=== PATIENT | female | born 1995 | race African-American/Black ===

== ENCOUNTER 2020-04-21 16:18 | Emergency (ER) | payer MEDICAID ==
[~2020-04-21] VITALS: Ht 167.6 cm; Wt 59.0 kg
[2020-04-21 16:50] LABS: MEAN CORPUSCULAR HEMOGLOBIN 31.5 pg (27.0-34.8); MEAN CORPUSCULAR HGB CONC 32.1 g/dL (32.4-35.8); MEAN PLATELET VOLUME 8.3 fL (7.4-10.4); PLATELET COUNT 188 x10^3/uL (130-400); RED BLOOD COUNT 4.23 x10^6/uL (3.82-5.3)
[2020-04-21] MEDS ORDERED: SODIUM CHLORIDE 0.9% 1,000ML IVBOLUS ONE (17:00)
[2020-04-21] MEDS ORDERED: SODIUM CHLORIDE FLUSH 10ML SYR IVF ONE (17:00)
[2020-04-21] MEDS ORDERED: ONDANSETRON 2MG/ML, 2ML IVPush ONE (17:00)
--- NOTE | 2020-04-21 17:00 | NUR ---
PT BIB P/V FOR CONTINUED FEVERS DESPITE TAKING ANTIBIOTICS FOR UTI. PT REPORTS PAIN ON FLANKS NOT THAT BAD BUT CAN'T KEEP THE FEVERS DOWN. PT ON .
[2020-04-21 17:01] LABS: ALANINE AMINOTRANSFERASE 34 U/L (12-78); ALBUMIN 3.7 g/dL (3.4-5.0); ANION GAP 11 mmol/L (5-15); CALCIUM 8.4 mg/dL (8.5-10.1); CHLORIDE 100 mmol/L (98-107)
[2020-04-21] MEDS ORDERED: ONDANSETRON 2MG/ML, 2ML ONE (17:02)
[2020-04-21 17:06] LABS: ALKALINE PHOSPHATASE 46 U/L (45-117); BILIRUBIN,TOTAL 0.3 mg/dL (0.2-1.0)
--- NOTE | 2020-04-21 17:23 | NUR ---
BREAK RN: PT RESTING ON GURNEY W/ CALL LIGHT IN REACH AND FAMILY AT BEDSIDE. PT MEDICATED PER EMAR, CONNECTED TO MONITORING, VSS, NADN.
[2020-04-21 17:31] LABS: MD YES
[2020-04-21 17:36] LABS: MICROSCOPIC INDICATED
[2020-04-21 17:36] LABS: <PLATELET ESTIMATE> ADEQUATE; <PLT MORPHOLOGY> NORMAL PLT MORPH; <RBC MORPHOLOGY> NORMAL; BAND#(MANUAL) 1.19 x10^3/uL; BANDS%(MANUAL) 22 % (0-7); EOS#(MANUAL) 0.22 x10^3/uL (0.0-0.4); EOS% (MANUAL) 4 % (1-7); LYMPH#(MANUAL) 0.76 x10^3/uL (1-3.4); LYMPHS% (MANUAL) 14 % (22-44); MONOS#(MANUAL) 0.16 x10^3/uL (0.3-2.7); MONOS% (MANUAL) 3 % (2-9); PMNS WITH VACUOLES 2+; SEG#(MANUAL) 3.08 x10^3/uL (1.8-6.8); SEGS% (MANUAL) 57 % (42-75)
[2020-04-21] MEDS ORDERED: CEFTRIAXONE PMX 1GM/50ML 50 ML IVPB ONE (18:00)
[2020-04-21] MEDS ORDERED: CEFTRIAXONE PMX 1GM/50ML 50 ML ONE ×2 (18:28→18:45)
[2020-04-21 18:35] VITALS: BP 105/64
--- NOTE | 2020-04-21 18:36 | NUR ---
ANTIBIOTICS STARED ER MD ORDER. NO BLOOD CULTURES NEEDED PER DR. GARRETT.
== END 2020-04-21 19:14 | disposition home or self-care (01) ==
LOC: ED 16:45
DX: N30.00 Acute cystitis without hematuria (principal); R11.2 Nausea with vomiting, unspecified
CPT/HCPCS: 36415; 80053; 81001; 84702; 85025; 87086; 96361; 96365; 96375; 99284; J0696; J2405; J7030

== ENCOUNTER 2020-11-03 18:12 | Inpatient (IN) | payer MEDICAID ==
[~2020-11-03] VITALS: Ht 167.6 cm; Wt 62.9 kg
[2020-11-03] MEDS ORDERED: ONDANSETRON 2MG/ML, 2ML ONE (18:53)
[2020-11-03] MEDS ORDERED: MORPHINE SULFATE 4 MG/ML, 1ML ONE ×2 (18:54→21:05)
[2020-11-03] MEDS ORDERED: ACETAMINOPHEN 500 MG TABLET ONE (18:54)
[2020-11-03 19:00] LABS: MEAN CORPUSCULAR HEMOGLOBIN 33.6 pg (27.0-34.8); MEAN CORPUSCULAR HGB CONC 33.3 g/dL (32.4-35.8); PLATELET COUNT 208 x10^3/uL (130-400); RED BLOOD COUNT 3.75 x10^6/uL (3.82-5.3)
[2020-11-03] MEDS ORDERED: SODIUM CHLORIDE 0.9% 1,000ML IVBOLUS ONE ×2 (19:00→19:30)
[2020-11-03] MEDS: MORPHINE SULFATE 4 MG/ML, 1ML IVPush PRN ×2 (19:00→21:13)
[2020-11-03] MEDS ORDERED: ACETAMINOPHEN 500 MG TABLET PO ONE (19:00)
[2020-11-03] MEDS ORDERED: SODIUM CHLORIDE FLUSH 10ML SYR IVF ONE (19:00)
[2020-11-03] MEDS ORDERED: ONDANSETRON 2MG/ML, 2ML IVPush ONE (19:00)
[2020-11-03 19:05] LABS: MICROSCOPIC INDICATED
[2020-11-03 19:11] LABS: ANION GAP 12 mmol/L (5-15); CALCIUM 8.7 mg/dL (8.5-10.1); CHLORIDE 103 mmol/L (98-107); CREATININE 1.19 mg/dL (0.55-1.02)
--- NOTE | 2020-11-03 19:11 | NUR ---
1ST ATTEMPT PIV PLACEMENT UNSUCCESSFULL, BUT LABS AND 1 SET BLOOD CX DRAWN. PIV PLACED, ON SECOND ATTEMPT, REST OF LABS AND SECOND SET BLOOD CX DRAWN. ALL LABS AND URINE COLLECTED BY SUPERVISOR DISPLAY FABRICATION. IVF RUNNING. MEDS ADMIN PER NOV. PT CONNECTED TO MONITORING. CALL LIGHT IN REACH. EKG COMPLETE.
[2020-11-03 19:12] LABS: ALANINE AMINOTRANSFERASE 20 U/L (12-78); ALBUMIN 3.8 g/dL (3.4-5.0)
[2020-11-03 19:16] LABS: ALKALINE PHOSPHATASE 75 U/L (45-117); BILIRUBIN,TOTAL 1.1 mg/dL (0.2-1.0); TOTAL PROTEIN 8.2 g/dL (6.4-8.2)
[2020-11-03 19:17] LABS: MD YES
[2020-11-03 19:20] LABS: BAND#(MANUAL) 2.37 x10^3/uL; BANDS%(MANUAL) 14 % (0-7); LYMPH#(MANUAL) 1.35 x10^3/uL (1-3.4); LYMPHS% (MANUAL) 8 % (22-44); MONOS#(MANUAL) 0.34 x10^3/uL (0.3-2.7); MONOS% (MANUAL) 2 % (2-9); SEG#(MANUAL) 12.84 x10^3/uL (1.8-6.8); SEGS% (MANUAL) 76 % (42-75)
[2020-11-03 19:23] LABS: MICROCYTOSIS 1+; OVALOCYTES 1+
[2020-11-03 19:24] LABS: <PLATELET ESTIMATE> ADEQUATE; <PLT MORPHOLOGY> NORMAL PLT MORPH; PMNS WITH VACUOLES 1+
[2020-11-03] MEDS ORDERED: CEFTRIAXONE PMX 2GM/50ML 50 ML IVPB ONE (19:30)
[2020-11-03] MEDS ORDERED: LACTATED RINGERS 1,000 ML IVBOLUS ONE (20:00)
[2020-11-03] MEDS ORDERED: METRONIDAZOLE PMX 500MG/100ML 100 ML IV ONE (20:00)
[2020-11-03] MEDS ORDERED: OMNIPAQUE 350 MG/ML, 100ML BOTTLE ONE (20:00)
[2020-11-03] MEDS ORDERED: METRONIDAZOLE PMX 500MG/100ML 100 ML ONE (20:17)
[2020-11-03] MEDS ORDERED: CEFTRIAXONE PMX 2GM/50ML 50 ML ONE (20:17)
--- NOTE | 2020-11-03 20:22 | NUR ---
PT BACK FROM US. IV ABX STARTED PER NOV. 2 SETS BLOOD CX COLLECTED PRIOR TO ADMIN.
--- NOTE | 2020-11-03 20:23 | NUR ---
PT STATES PAIN IS BETTER.
--- NOTE | 2020-11-03 20:42 | NUR ---
PT AT CT
--- NOTE | 2020-11-03 21:12 | NUR ---
THIS RN AT BEDSIDE DURING PELVIC EXAM. PAIN MEDS ADMIN.
--- NOTE | 2020-11-03 21:15 | NUR ---
MD AT BEDSIDE TO UPDATE PT ON POC.
--- NOTE | 2020-11-03 21:22 | NUR ---
CONSULTING WITH UROLOGY
[2020-11-03 21:23] LABS: CLUE CELLS NONE SEEN (NONE SEEN)
[2020-11-03 21:24] LABS: WET PREP WBCS MODERATE (FEW)
--- NOTE | 2020-11-03 22:00 | NUR ---
HOSPITALIST AT BEDSIDE.
--- NOTE | 2020-11-03 22:47 | NUR ---
REPORT GIVEN TO JACKELYN AUSTIN IN SURGERY.
[2020-11-03] MEDS ORDERED: LACTATED RINGERS 1,000 ML IV SCH (23:00)
[2020-11-03] MEDS ORDERED: MELATONIN 5 MG TABLET PO PRN (23:00)
[2020-11-03] MEDS ORDERED: BISACODYL 10 MG SUPP PR PRN (23:00)
[2020-11-03] MEDS ORDERED: LIDODERM 5% PATCH TD PRN (23:00)
[2020-11-04] MEDS ORDERED: FENTANYL PF 100 MCG/2ML ONE ×3 (00:08→01:16)
[2020-11-04] MEDS ORDERED: ONDANSETRON 2MG/ML, 2ML ONE (00:49)
[2020-11-04] MEDS ORDERED: CEFAZOLIN 1,000 MG ONE (00:49)
[2020-11-04] MEDS ORDERED: PROPOFOL 10 MG/ML, 20ML ONE (00:49)
[2020-11-04] MEDS ORDERED: DEXAMETHASONE 4 MG/ML, 1ML ONE (00:49)
[2020-11-04] MEDS ORDERED: MEPERIDINE/PF 25MG/0.5ML IVPush PRN (01:00)
[2020-11-04] MEDS ORDERED: OXYcodone 5 MG/5 ML ORAL.SOL UDC PO PRN (01:00)
[2020-11-04] MEDS ORDERED: VANCOMYCIN PER PHARMACY MC PRN (01:00)
[2020-11-04] MEDS ORDERED: HALOPERIDOL 5 MG/ML IV PRN (01:00)
[2020-11-04] MEDS ORDERED: DIPHENHYDRAMINE 50 MG/ML, 1ML IVPush PRN (01:00)
[2020-11-04] MEDS ORDERED: PHARMACY MAY ADJ FOR RENAL FX MC PRN (01:00)
[2020-11-04] MEDS ORDERED: hydrALAzine 20 MG/ML, 1ML IV PRN (01:00)
[2020-11-04] MEDS ORDERED: LABETALOL 5MG/ML, 20ML IV PRN (01:00)
[2020-11-04] MEDS ORDERED: HYDROmorphone 1 MG/ML, 1ML INJ IVPush PRN (01:00)
[2020-11-04] MEDS ORDERED: PROMETHAZINE 25 MG/ML, 1ML IVPush PRN (01:00)
[2020-11-04] MEDS ORDERED: FENTANYL PF 100 MCG/2ML IV PRN (01:00)
[2020-11-04] MEDS: ACETAMINOPHEN 325 MG TABLET PO PRN ×2 (01:10→21:55)
[2020-11-04] MEDS ORDERED: ACETAMINOPHEN 650 MG/20.3 ML UDC ONE (01:16)
[2020-11-04] MEDS ORDERED: OXYcodone 5 MG/5 ML ORAL.SOL UDC ONE (01:16)
[2020-11-04 01:59] VITALS: BP 106/66
[2020-11-04] MEDS ORDERED: PHARMACOKINETIC MONITORING MC PRN (02:00)
[2020-11-04] MEDS: SODIUM CHLORIDE 0.9% 1,000 ML IV SCH ×2 (02:30→15:27)
[2020-11-04] MEDS: VANCOMYCIN PMX 1GM/200ML 200 ML IV SCH ×2 (02:32→15:16)
[2020-11-04 02:38] VITALS: BP 106/66
[2020-11-04] MEDS: METRONIDAZOLE PMX 500MG/100ML 100 ML IV SCH ×4 (03:34→23:41)
[2020-11-04] MEDS: MEROPENEM 1 GM in SODIUM CHLORIDE 0.9% 100 ML IV SCH ×3 (04:41→21:55)
[2020-11-04] MEDS: morphine SULFATE 10 MG/ML, 1ML IVPush PRN ×6 (04:48→22:12)
[2020-11-04 04:51] VITALS: BP 92/56
[2020-11-04] MEDS ORDERED: SODIUM CHLORIDE 0.9% 1,000 ML IV SCH (05:00)
[2020-11-04 06:58] LABS: BASOPHILS % (AUTO) 0 % (0-1); EOSINOPHILS % (AUTO) 0 % (1-7); LYMPHOCYTES % (AUTO) 2 % (22-44); MEAN CORPUSCULAR HEMOGLOBIN 33.8 pg (27.0-34.8); MEAN CORPUSCULAR HGB CONC 33.6 g/dL (32.4-35.8); MEAN PLATELET VOLUME 7.9 fL (7.4-10.4); MONOCYTES % (AUTO) 3 % (2-9); NEUTROPHILS % (AUTO) 95 % (42-75); PLATELET COUNT 156 x10^3/uL (130-400); RED BLOOD COUNT 3.12 x10^6/uL (3.82-5.3); RED CELL DISTRIBUTION WIDTH 14.8 % (9.6-15.2)
[2020-11-04 06:59] LABS: MD NO
[2020-11-04 07:04] VITALS: BP 91/53
[2020-11-04 07:12] LABS: ANION GAP 6 mmol/L (5-15); CHLORIDE 112 mmol/L (98-107); CREATININE 0.95 mg/dL (0.55-1.02)
[2020-11-04] MEDS: ONDANSETRON 2MG/ML, 2ML IVPush PRN (08:52)
[2020-11-04] MEDS: PHENAZOPYRIDINE 100 MG TABLET PO PRN ×2 (11:52→22:11)
[2020-11-04 12:21] LABS: HCG UR SG 1.006 (1.003-1.030)
[2020-11-04 13:04] VITALS: BP 105/67
[2020-11-04 18:46] VITALS: BP 117/77
[2020-11-04] MEDS ORDERED: CEFTRIAXONE PMX 2GM/50ML 50 ML IVPB SCH (20:00)
[2020-11-04] MEDS: OXYBUTYNIN CHLORIDE 5 MG TABLET PO SCH (21:56)
[2020-11-05 01:17] VITALS: BP 100/58
[2020-11-05] MEDS: VANCOMYCIN PMX 1GM/200ML 200 ML IV SCH (02:29)
[2020-11-05] MEDS: METRONIDAZOLE PMX 500MG/100ML 100 ML IV SCH ×4 (04:59→23:08)
[2020-11-05] MEDS: morphine SULFATE 10 MG/ML, 1ML IVPush PRN ×3 (05:08→14:06)
[2020-11-05 06:01] LABS: BASOPHILS % (AUTO) 0 % (0-1); EOSINOPHILS % (AUTO) 0 % (1-7); LYMPHOCYTES % (AUTO) 10 % (22-44); MEAN CORPUSCULAR HGB CONC 34.1 g/dL (32.4-35.8); MEAN PLATELET VOLUME 8.7 fL (7.4-10.4); MONOCYTES % (AUTO) 10 % (2-9); NEUTROPHILS % (AUTO) 80 % (42-75); PLATELET COUNT 182 x10^3/uL (130-400); RED BLOOD COUNT 3.09 x10^6/uL (3.82-5.3); RED CELL DISTRIBUTION WIDTH 14.7 % (9.6-15.2)
[2020-11-05 06:09] LABS: ALBUMIN 2.4 g/dL (3.4-5.0); ANION GAP 6 mmol/L (5-15); CALCIUM 7.9 mg/dL (8.5-10.1); CHLORIDE 110 mmol/L (98-107)
[2020-11-05 06:12] LABS: ALANINE AMINOTRANSFERASE 13 U/L (12-78); ALKALINE PHOSPHATASE 52 U/L (45-117); BILIRUBIN,TOTAL 0.5 mg/dL (0.2-1.0); MD NO; TOTAL PROTEIN 5.7 g/dL (6.4-8.2)
[2020-11-05] MEDS: PHENAZOPYRIDINE 100 MG TABLET PO PRN (06:25)
[2020-11-05] MEDS: MEROPENEM 1 GM in SODIUM CHLORIDE 0.9% 100 ML IV SCH ×2 (06:25→14:06)
[2020-11-05] MEDS: SODIUM CHLORIDE 0.9% 1,000 ML IV SCH (06:31)
[2020-11-05 07:45] VITALS: BP 100/63
[2020-11-05] MEDS: OXYBUTYNIN CHLORIDE 5 MG TABLET PO SCH ×2 (08:24→20:18)
[2020-11-05] MEDS: TAMSULOSIN 0.4 MG CAP.ER.24H PO SCH (08:24)
[2020-11-05] MEDS: ONDANSETRON 2MG/ML, 2ML IVPush PRN (11:11)
[2020-11-05 13:38] VITALS: BP 113/74
[2020-11-05] MEDS ORDERED: CEFTRIAXONE PMX 1GM/50ML 50 ML IV SCH (14:00)
[2020-11-05] MEDS ORDERED: TRAZ50TA66 PO (14:15)
[2020-11-05] MEDS ORDERED: OLAN10TA3 PO (14:15)
[2020-11-05 14:27] LABS: VANCOMYCIN,TROUGH 6.3 mcg/mL (5.0-10.0)
[2020-11-05] MEDS ORDERED: ONDANSETRON ODT 4 MG PO PRN (14:30)
[2020-11-05] MEDS ORDERED: POTASSIUM CHLORIDE 40 MEQ in SODIUM CHLORIDE 0.9% 500 ML IV ONE (15:30)
[2020-11-05] MEDS ORDERED: MAGNESIUM HYDROXIDE 8%, 30ML UDC ONE (17:48)
[2020-11-05] MEDS ORDERED: MAGNESIUM HYDROXIDE 8%, 30ML UDC PO PRN (18:00)
[2020-11-05 18:50] VITALS: BP 124/78
[2020-11-05] MEDS: ACETAMINOPHEN 325 MG TABLET PO PRN (20:18)
[2020-11-05] MEDS: OXYcodone IR 5MG TABLET PO PRN ×2 (20:19→20:55)
[2020-11-05] MEDS ORDERED: TRAZODONE 50MG TABLET PO SCH (21:00)
[2020-11-05] MEDS ORDERED: OLANZAPINE 10 MG TABLET PO SCH (21:00)
[2020-11-05] MEDS ORDERED: ONDA4TAB13 PO (22:12)
[2020-11-05] MEDS ORDERED: PHEN-582 PO (22:12)
[2020-11-05] MEDS ORDERED: TAMS-11 PO (22:12)
[2020-11-05] MEDS ORDERED: OXYB5TAB10 PO (22:12)
[2020-11-05] MEDS ORDERED: CIPR500T4 PO (22:12)
[2020-11-05] MEDS ORDERED: ACET325T26 PO (22:12)
[2020-11-05] MEDS ORDERED: OXYC5TAB98 PO ×2 (22:12)
[2020-11-06 01:01] VITALS: BP 111/65
[2020-11-06] MEDS: METRONIDAZOLE PMX 500MG/100ML 100 ML IV SCH ×2 (04:36→09:34)
[2020-11-06] MEDS: SODIUM CHLORIDE 0.9% 1,000 ML IV SCH ×2 (04:36→12:00)
[2020-11-06 05:40] LABS: BASOPHILS % (AUTO) 1 % (0-1); EOSINOPHILS % (AUTO) 0 % (1-7); LYMPHOCYTES % (AUTO) 26 % (22-44); MEAN CORPUSCULAR HEMOGLOBIN 33.9 pg (27.0-34.8); MEAN PLATELET VOLUME 8.4 fL (7.4-10.4); MONOCYTES % (AUTO) 14 % (2-9); NEUTROPHILS % (AUTO) 59 % (42-75); PLATELET COUNT 223 x10^3/uL (130-400); RED CELL DISTRIBUTION WIDTH 14.9 % (9.6-15.2)
[2020-11-06 05:49] LABS: MD NO
[2020-11-06 05:54] LABS: ANION GAP 6 mmol/L (5-15); CALCIUM 8.2 mg/dL (8.5-10.1); CHLORIDE 111 mmol/L (98-107); CREATININE 0.55 mg/dL (0.55-1.02)
[2020-11-06 07:14] VITALS: BP 110/66
[2020-11-06] MEDS: TAMSULOSIN 0.4 MG CAP.ER.24H PO SCH (09:33)
[2020-11-06] MEDS: OXYcodone IR 5MG TABLET PO PRN (09:33)
[2020-11-06] MEDS: OXYBUTYNIN CHLORIDE 5 MG TABLET PO SCH (09:33)
[2020-11-06 13:29] VITALS: BP 132/68
[2020-11-06] MEDS ORDERED: OXYC5TAB98 PO (14:32)
== END 2020-11-06 14:20 | disposition home or self-care (01) | DRG 854 ==
LOC: OR 18:42 → EDIP 21:46 → UNDOADMIN 21:46 → EDIP 22:43 → 4NE 11-04 01:36 → DCLOUNGE 11-06 13:59
PROVIDERS: ADMIT Family Medicine; ATTEND Internal Medicine
PROC: 0T778DZ Dilation of Left Ureter with Intraluminal Device, Via Natural or Artificial Opening Endoscopic (ICD-10-PCS; principal; 2020-11-04)
PROC: BT1F1ZZ Fluoroscopy of Left Kidney, Ureter and Bladder using Low Osmolar Contrast (ICD-10-PCS; 2020-11-04)
DX: A41.9 Sepsis, unspecified organism (principal); E87.2 Acidosis; N11.1 Chronic obstructive pyelonephritis; N13.6 Pyonephrosis; N17.9 Acute kidney failure, unspecified; B96.4 Proteus (mirabilis) (morganii) as the cause of diseases classified elsewhere; D53.9 Nutritional anemia, unspecified; Z20.822 Contact with and (suspected) exposure to COVID-19; D75.89 Other specified diseases of blood and blood-forming organs; E87.6 Hypokalemia; F39 Unspecified mood [affective] disorder; R65.20 Severe sepsis without septic shock; F12.90 Cannabis use, unspecified, uncomplicated; F17.210 Nicotine dependence, cigarettes, uncomplicated; F31.9 Bipolar disorder, unspecified; Z87.442 Personal history of urinary calculi; Z88.0 Allergy status to penicillin
CPT/HCPCS: 36415; 74178; 74420; 76770; 76830; 80048; 80053; 80202; 81001; 81025; 82607; 83605; 83735; 84100; 84145; 84439; 84443; 84702; 84703; 85025; 86140; 87040; 87077; 87086; 87186; 87210; 87491; 87591; 87635; 87808; 93005; 96365; 96372; 96375; 96376; 99285; G0378; J0690; J0696; J1100; J2185; J2405; J2704; J3010; J3370; J3480; Q9967; C1769; C2617; J2270; J7030; J7040; J7120

== ENCOUNTER 2020-11-14 11:57 | Emergency (ER) | payer MEDICAID ==
[~2020-11-14] VITALS: Ht 167.6 cm; Wt 56.4 kg
[~2020-11-14 11:57] MED LIST: ACET325T26 PO; CIPR500T4 PO; OLAN10TA3 PO; ONDA4TAB13 PO; OXYB5TAB10 PO; OXYC5TAB98 PO; PHEN-582 PO; TAMS-11 PO; TRAZ50TA66 PO
--- NOTE | 2020-11-14 12:20 | NUR ---
PT AMBULATORY TO ROOM 27 W/ C/O L FLANK PAIN WORSENED SINCE PT WAS LAST SEEN HERE. PT STATES SHE WAS ADMITTED FOR UROSEPSIS AND HAD STENT PLACED. PAIN TO L FLANK SITE WHERE THE STENT WAS PLACED. PT WAS DX W/ MOLAR AT THE TIME. PT ALSO C/O PELVIC PAIN AND PRESSURE. STATES SHE TOOK PILL AND AT LAST ED VISIT AND ADMISSION PT HAD MOLAR IN PLACE. AT 0600 TODAY PT STATES SHE WENT TO THE BATHROOM AND PASSED MULTIPLE CLOTS AND FILLED THE TOILET W/ BLOOD. PT RESTING ON DIMITRI. JANET. MONITORS APPLIED. BALAJI IYER AT BEDSIDE FOR EVAL.
[2020-11-14] MEDS ORDERED: ONDANSETRON 2MG/ML, 2ML ONE (12:29)
[2020-11-14] MEDS ORDERED: MORPHINE SULFATE 4 MG/ML, 1ML IVPush PRN (12:30)
[2020-11-14] MEDS ORDERED: MORPHINE SULFATE 4 MG/ML, 1ML ONE (12:30)
[2020-11-14 12:54] LABS: BASOPHILS % (AUTO) 0 % (0-1); EOSINOPHILS % (AUTO) 2 % (1-7); LYMPHOCYTES % (AUTO) 40 % (22-44); MEAN CORPUSCULAR HEMOGLOBIN 33.4 pg (27.0-34.8); MEAN CORPUSCULAR HGB CONC 34.1 g/dL (32.4-35.8); MEAN PLATELET VOLUME 7.3 fL (7.4-10.4); MONOCYTES % (AUTO) 7 % (2-9); NEUTROPHILS % (AUTO) 52 % (42-75); PLATELET COUNT 437 x10^3/uL (130-400); RED BLOOD COUNT 3.48 x10^6/uL (3.82-5.3); RED CELL DISTRIBUTION WIDTH 14.6 % (9.6-15.2)
--- NOTE | 2020-11-14 12:54 | NUR ---
PT RESTING ON GURNEY. NADN. SILVERIO.
[2020-11-14 12:57] LABS: MD NO
[2020-11-14] MEDS ORDERED: ONDANSETRON 2MG/ML, 2ML IVPush ONE (13:00)
[2020-11-14 13:01] LABS: ALBUMIN 3.6 g/dL (3.4-5.0); ANION GAP 10 mmol/L (5-15); CALCIUM 8.9 mg/dL (8.5-10.1); CHLORIDE 109 mmol/L (98-107); CREATININE 0.54 mg/dL (0.55-1.02)
--- NOTE | 2020-11-14 13:11 | NUR ---
PT TAKEN TO US IN STABLE CONDITION.
[2020-11-14 13:28] LABS: MICROSCOPIC INDICATED
--- NOTE | 2020-11-14 13:45 | NUR ---
PT BACK FROM US. RESTING ON [employer]. NADN. SILVERIO.
--- NOTE | 2020-11-14 14:10 | NUR ---
PT CHART REVIEWED AND PLACED FOR RECHECK.
[2020-11-14] MEDS ORDERED: HYDROmorphone 1 MG/ML, 1ML INJ ONE (14:27)
[2020-11-14] MEDS ORDERED: HYDROmorphone 1 MG/ML, 1ML INJ IV ONE (14:30)
[2020-11-14 14:42] VITALS: BP 116/65
--- NOTE | 2020-11-14 14:43 | NUR ---
[facility] V[facility]. MEDICATED PER NOV.
--- NOTE | 2020-11-14 14:52 | NUR ---
REPORT GIVEN TO NORMAN POPE.
--- NOTE | 2020-11-14 14:54 | NUR ---
Report from NORMAN Rollins. Assumed care.
--- NOTE | 2020-11-14 15:06 | NUR ---
Pt agrees with and understands discharge plan and instructions, will follow-up with urologist.
== END 2020-11-14 15:08 | disposition home or self-care (01) ==
LOC: ED 12:56
DX: N20.0 Calculus of kidney (principal); R31.0 Gross hematuria; R10.9 Unspecified abdominal pain; N98.9 Complication associated with artificial fertilization, unspecified; M54.5 Low back pain; F17.200 Nicotine dependence, unspecified, uncomplicated
CPT/HCPCS: 36415; 74018; 76830; 80048; 81001; 82040; 84702; 85025; 86901; 87086; 96374; 96375; 99285; J1170; J2270; J2405

== ENCOUNTER 2020-12-03 10:46 | Emergency (ER) | payer MEDICAID ==
[~2020-12-03] VITALS: Ht 167.6 cm; Wt 56.4 kg
--- NOTE | 2020-12-03 11:12 | NUR ---
PT C/O LEFT ABD PAIN AND FLANK PAIN, PT STATES SHE HAS A 9MM KIDNEY STONE AND SCHEDULED FOR SURGERY ON 12/06/20. DR. DECKER AT BEDSIDE FOR EVAL.
[2020-12-03] MEDS ORDERED: FLUO10CA15 PO (11:25)
[2020-12-03] MEDS ORDERED: OXYC1TAB14 PO (11:25)
[2020-12-03] MEDS ORDERED: QUET200T PO (11:25)
[2020-12-03] MEDS ORDERED: TRAZ-96 PO (11:25)
[2020-12-03] MEDS ORDERED: KETOROLAC 30 MG/1 ML ONE (11:28)
[2020-12-03] MEDS ORDERED: ONDANSETRON 2MG/ML, 2ML ONE (11:29)
[2020-12-03] MEDS ORDERED: ONDANSETRON 2MG/ML, 2ML IVPush ONE (11:30)
[2020-12-03] MEDS ORDERED: KETOROLAC 30 MG/1 ML IVPush ONE (11:30)
[2020-12-03] MEDS ORDERED: HYDROmorphone 2 MG/ML, 1ML IVPush PRN (11:30)
[2020-12-03 11:43] LABS: BASOPHILS % (AUTO) 1 % (0-1); EOSINOPHILS % (AUTO) 1 % (1-7); LYMPHOCYTES % (AUTO) 53 % (22-44); MEAN CORPUSCULAR HEMOGLOBIN 33.2 pg (27.0-34.8); MEAN CORPUSCULAR HGB CONC 34.2 g/dL (32.4-35.8); MONOCYTES % (AUTO) 6 % (2-9); NEUTROPHILS % (AUTO) 39 % (42-75); PLATELET COUNT 229 x10^3/uL (130-400); RED BLOOD COUNT 3.47 x10^6/uL (3.82-5.3); RED CELL DISTRIBUTION WIDTH 14.1 % (9.6-15.2)
[2020-12-03 11:45] LABS: MD NO
[2020-12-03 11:54] LABS: ANION GAP 7 mmol/L (5-15); CALCIUM 8.7 mg/dL (8.5-10.1); CHLORIDE 112 mmol/L (98-107)
--- NOTE | 2020-12-03 11:54 | NUR ---
STRAIGHT CATHETER WITHOUT DIFFICULTY. PT TOLERATED WELL.
[2020-12-03] MEDS ORDERED: HYDROmorphone 2 MG/ML, 1ML ONE (11:55)
[2020-12-03 11:59] LABS: ALANINE AMINOTRANSFERASE 29 U/L (12-78); ALKALINE PHOSPHATASE 49 U/L (45-117); BILIRUBIN,TOTAL 0.3 mg/dL (0.2-1.0); CREATININE 0.65 mg/dL (0.55-1.02); TOTAL PROTEIN 8.1 g/dL (6.4-8.2)
[2020-12-03 12:07] LABS: MICROSCOPIC INDICATED
[2020-12-03 13:25] VITALS: BP 128/70
== END 2020-12-03 13:27 | disposition home or self-care (01) ==
LOC: ED 13:15
DX: T83.84XA Pain due to genitourinary prosthetic devices, implants and grafts, initial encounter (principal); N20.0 Calculus of kidney; F17.200 Nicotine dependence, unspecified, uncomplicated; Y92.89 Other specified places as the place of occurrence of the external cause
CPT/HCPCS: 36415; 74176; 80053; 81001; 84703; 85025; 87086; 96374; 96375; 99284; J1170; J1885; J2405

== ENCOUNTER 2020-12-24 01:50 | Emergency (ER) | payer MEDICAID ==
[~2020-12-24] VITALS: Ht 167.6 cm; Wt 52.0 kg
[~2020-12-24 01:50] MED LIST changes: +FLUO10CA15 PO; +OXYC1TAB14 PO; +QUET200T PO; +TRAZ-96 PO
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
[2020-12-24] MEDS ORDERED: LORazepam 1MG TABLET ONE (02:09)
--- NOTE | 2020-12-24 02:26 | NUR ---
PT CALMING DOWN, AND BREATHING EASIER. PT MEDICATED PER MD ORDERS. EGG CANDLER TO BEDSIDE TO TAKE PT TO CT. PT MORE CALM, AND RELAXED AT TIME OF CT DEPARTURE.
[2020-12-24] MEDS ORDERED: LORazepam 1MG TABLET PO ONE (02:30)
--- NOTE | 2020-12-24 03:16 | NUR ---
PT WITH EASY RESPIRATION, AND SLEEPING IN BED AT THIS TIME. AWAITING ON TEST RESULTS. PT SPOKE WITH HER MOM ON THE PHONE AND REMAINS CALM AND COOPERATIVE WITHOUT ANY RESPIRATORY DISTRESS.
[2020-12-24 03:37] VITALS: BP 110/64
--- NOTE | 2020-12-24 03:46 | NUR ---
PT FAST ASLEEP. O2 SAT 100% AND HR 98. EASY RESPIRATIONS AND GOOD AERATION.
--- NOTE | 2020-12-24 04:50 | NUR ---
pt awake and alert, and oriented to time and situation. f/u and d/c instructions given to pt and she v/u. pt stood up and assited to dc in wheelchair. pt given a cab voucher, and placed in cab to her house. no acute distress, and pt calm and cooperative.
== END 2020-12-24 04:53 | disposition home or self-care (01) ==
LOC: ED 03:46
DX: S00.81XA Abrasion of other part of head, initial encounter (principal); M54.2 Cervicalgia; F41.1 Generalized anxiety disorder; R06.4 Hyperventilation; F17.210 Nicotine dependence, cigarettes, uncomplicated; Y04.8XXA Assault by other bodily force, initial encounter; Y93.89 Activity, other specified; Y92.009 Unspecified place in unspecified non-institutional (private) residence as the place of occurrence of the external cause; Y99.8 Other external cause status
CPT/HCPCS: 70450; 70486; 72125; 99285; 99406